=== PATIENT | female | born 1990 | race African-American/Black ===

== ENCOUNTER 2019-01-11 05:43 | Emergency (ER) | payer MEDICAID, SELFPAY ==
[2019-01-11 05:44] VITALS: BP 141/99; PULSE 107; RESP 20; TEMP 37.2; O2SAT 96; BMI 39.3
[2019-01-11 05:50] VITALS: O2SAT 97
[2019-01-11 06:34] VITALS: PULSE 91; RESP 16
[2019-01-11] MEDS: Ipratropium/Albuterol Sulfate 3 ML AMPUL.NEB INHALATION (06:34)
--- NOTE | 2019-01-11 06:55 | ED.VISSUMM ---
- ER Visit Summary Date of Service: 01/11/19 Chief Complaint: Asthma and shortness of breath History of Present Illness: The patient is a 29 F who presents with shortness of breath and asthma that began today. Patient states she woke up with this. Patient states it improved after she got an aerosol by EMS. Patient admits to a cough with some yellow sputum. Patient denies any fevers or chills. Patient denies any rhinorrhea or sore throat. Patient denies any chest pain. Patient denies any urinary complaints. Physical Examination: Vital signs are stable. Patient is afebrile. Patient is in no acute distress. Oral mucosa is pink and moist. Neck is supple. Trachea is midline. There is no JVD noted. Heart was regular rate and rhythm. Lungs were somewhat diminished bilaterally. There is adequate respiratory effort noted. Abdomen is soft and nontender. Cranial nerves II through XII are intact. There are no focal motor or sensory deficits noted. Emergency Department Course and Treatment: Patient was given a DuoNeb aerosol here. Patient felt better on reevaluation. Patient was given a prescription for albuterol inhaler. Patient was instructed to follow-up with her primary care physician in 5 to 7 days. Patient understood and was agreeable with the plan. All questions were answered. Disposition: Discharge home Impression: Asthma exacerbation This note was generated with [employer] dictation software. It may contain incorrect words, spelling, and punctuation that were not noted in review of the chart prior to signing ED Disposition - Plan for ED Patient: Disposition: Home or Assisted Living Diagnosis: Asthma exacerbation Instructions: ASTHMA, Acute (Adult) Prescriptions: Albuterol Inhaler [Ventolin Hfa] 1 - 2 puff INHALATION Q4H PRN PRN #1 inhaler PRN Reason: Wheezing Prescription Printed Referrals: Care Physician,No Primary [Primary Care Provider] - Jorge Mckeon MD [NON-STAFF] - 5-7 Days
[2019-01-11 07:16] VITALS: BP 138/92; PULSE 93; RESP 18; O2SAT 96
== END 2019-01-11 07:16 | disposition home or self-care (01) ==
PROVIDERS: Emergency Provider Emergency Medicine
DX: J45.901 Unspecified asthma with (acute) exacerbation (principal); Z87.891 Personal history of nicotine dependence
CPT/HCPCS: 94640; 99284

== ENCOUNTER 2019-01-11 13:11 | Emergency (ER) | payer MEDICAID, SELFPAY ==
[2019-01-11 05:44] VITALS: BMI 39.3
[2019-01-11 13:12] VITALS: BP 156/104; PULSE 109; RESP 22; TEMP 36.8; O2SAT 96; BMI 39.1
[2019-01-11 13:21] VITALS: O2SAT 96
--- NOTE | 2019-01-11 13:24 | ED.VIS.DYS ---
History of Present Illness Informant: Patient Onset: Yesterday Activity at onset: Exertion, Light Activity, Rest Timing: Continuous Quality: Dyspnea on exertion, Wheezing. Negative for: Orthopnea, PND Current Severity: Moderate Maximum Severity: Severe Worsened by: Coughing, Exertion. Not Worsened By: Lying flat, Nothing Relieved by: Nothing Associated Symptoms: Cough. Negative for: Bloody Sputum, Chills, Clear sputum, Ear pain, Fever, Green sputum, Post-nasal drainage, Rhinorrhea, Sore throat, Sweats, White sputum, Yellow sputum Chest Pain: None Narrative: 29-year-old female history of asthma presents to the emergency department with productive cough, shortness of breath and wheezing for the past 1 day. She was seen here earlier this morning. She was given aerosols and discharge. She used 1 puff of her metered-dose inhaler at home without improvement and has returned to the emergency department. No chest pain or fever. No hemoptysis. No recent travel or surgery. No history of DVT or PE. She is not on any oral control. Quit smoking a few days ago. Denies any other review of systems. PE Risk Factors: Negative for: Cancer, OCP + Smoking + > 35, Prior DVT or PE, Recent immobilization, Recent surgery, Recent travel Prior similar symptoms: Yes Recent Illness/Hospitalization: No <Dar Hurtado - Last Filed: 01/11/19 14:20> <Pratibha Crow - Last Filed: 01/11/19 15:01> Chief Complaint: Asthma Past Medical History Prior records reviewed: Yes Past Medical History: - - asthma Surgical History: no surgical history Lives: With Family Smoking Status: Former smoker <Dar Hurtado - Last Filed: 01/11/19 14:20> <Pratibha Crow - Last Filed: 01/11/19 15:01> - Allergies and Home Meds Allergies/Adverse Reactions: Allergies No Known Allergies Allergy (Verified 01/11/19 13:12) Primary Care Physician: Jorge Mckeon MD [NON-STAFF] - Care Physician,No Primary [Primary Care Provider] - Review of Systems All systems negative except as indicated General: Denies: Chills, Fever Respiratory: Reports: Dyspnea, Cough, Dyspnea on exertion. Denies: Sputum, Orthopnea, Paroxysmal nocturnal dyspnea <Dar Hurtado - Last Filed: 01/11/19 14:20> Physical Exam Vital Signs/Narrative: Vital Signs Temp Pulse Resp BP Pulse Ox 01/11/19 13:12 98.3 F 109 H 22 H 156/104 H 96 Inital Vital Signs reviewed: Yes General: Well nourished, Well developed, No Acute Distress Head: Normocephalic, Atraumatic Eyes: Perrl, EOMI ENT: Moist mucous membranes Neck: Supple, Nontender Cardiovascular: Regular rhythm, No murmurs, Tachycardia Respiratory: No distress, Chest nontender, Wheezing, Decreased Air Movement Abdomen: Soft, Nontender, Nondistended, Normal bowel sounds, No masses Back: Nontender, Normal Inspection Extremities: Nontender, No edema Skin: Normal color, No rash Neurological: Alert, Oriented x3 Psychological: Normal affect <Dar Hurtado - Last Filed: 01/11/19 14:20> Vital Signs/Narrative: Vital Signs Temp Pulse Resp BP Pulse Ox 01/11/19 14:55 97 18 134/79 H 96 01/11/19 13:29 106 H 18 01/11/19 13:12 98.3 F 109 H 22 H 156/104 H 96 <Pratibha Crow - Last Filed: 01/11/19 15:01> Diagnostic/Tx/Re-eval Chest X-Ray - ED: 2 View, Read by ED Physician, Read by Radiologist, No Acute Disease Treatment - Dyspnea: Albuterol, Atrovent Repeat Evaluation: Improved With Ambulation: Asymptomatic - Medical Decision Making Patient was given a round of aerosols as well as oral prednisone. Chest x-ray was unremarkable. Repeat evaluation she feels improved. Her pulse ox is normal. Her heart rate is actually improved. She has not used an inhaler since she was here last. She was given a metered-dose inhaler to take home and I will also give her a refill for her nebulizer machine. Encouraged to follow-up with her family physician next week <Dar Hurtado - Last Filed: 01/11/19 14:20> - Medical Decision Making 29-year-old female presents with asthma exacerbation. She was seen in the ED earlier today for similar complaints. She was unable to get her prescription for albuterol MDI filled. She states she was just unable to get to the pharmacy. Her insurance does cover her medications. After breathing treatments patient is feeling much improved. She is given prescription for prednisone. She was given albuterol MDI in the ED. Advised to follow up with her primary care physician. Advised return to ED for worsening complaints. <Pratibha Crow - Last Filed: 01/11/19 15:01> ED Disposition <Dar Hurtado - Last Filed: 01/11/19 14:20> <Pratibha Crow - Last Filed: 01/11/19 15:01> - Plan for ED Patient: Disposition: Home or Assisted Living Diagnosis: Asthma exacerbation Instructions: ASTHMA, Acute (Adult) Prescriptions: Prednisone [Deltasone] 40 mg PO DAILY #10 tab Prescription Printed Albuterol Aerosols [Ventolin Aerosols] 2.5 mg INHALATION Q4H PRN #25 vial Prescription Printed Referrals: Care Physician,No Primary [Primary Care Provider] - Jorge Mckeon MD [NON-STAFF] -
[2019-01-11] MEDS: predniSONE 20 MG Tablet 60 MG PO (13:28)
[2019-01-11 13:29] VITALS: PULSE 106; RESP 18
[2019-01-11] MEDS: Ipratropium/Albuterol Sulfate 3 ML AMPUL.NEB INHALATION (13:29)
[2019-01-11] MEDS: Albuterol 2.5 MG/3 ML VIAL.NEB. INHALATION ×2 (13:45)
--- NOTE | 2019-01-11 14:00 | RAD_ITS ---
STUDY: X-RAY CHEST REASON FOR EXAM: Female, 29 years old. Dyspnea TECHNIQUE: PA and lateral chest COMPARISON: None. FINDINGS: The lungs are clear, symmetrically and normally inflated. Normal cardiomediastinal silhouette, jemma and pleural margins. No acute osseous or upper abdominal abnormality. RAD/Chest PA and Lateral IMPRESSION: No acute cardiopulmonary process. Electronically Signed: Giuseppe Tomas MD at 14:15 EDT Tel , Service support ,
[2019-01-11 14:55] VITALS: BP 134/79; PULSE 97; RESP 18; O2SAT 96
== END 2019-01-11 14:58 | disposition home or self-care (01) ==
PROVIDERS: Emergency Provider Physician Assistant Medical
DX: J45.901 Unspecified asthma with (acute) exacerbation (principal); Z87.891 Personal history of nicotine dependence
CPT/HCPCS: 71046; 94640; 99283; 99284

== ENCOUNTER 2019-01-20 16:42 | Observation (INO) | payer MEDICAID, SELFPAY ==
[2019-01-20] VITALS (12 sets, daily range): BP systolic 105–143; BP diastolic 60–108; PULSE 101–132; RESP 13–32; TEMP 36.4–37.1; O2SAT 96–99; BMI 38.8
--- NOTE | 2019-01-20 19:22 | ED.RN ---
PT REFUSES TO LEAVE THE DUONEB MASK ON SAYS ITS TO HARD TO BREATH, O2 SAT 81 ON ROOM AIR IRIS INSPIRATORY AND EXPIRATORY WHEEZES. DR. SINGH MADE AWARE. EDUCATED THE PT THAT THE MEDICINE IN THE NEBULIZER IS THE FIRST STEP TO TREATING AN ASTHMA ATTACK AND THAT IT WAS IN HER BEST INTEREST TO TRY TO KEEP THE MASK ON. PT THEN ALLOWED ME TO PLACE THIS NURSE TO PLACE THE MASK BACK ON. O2 SAT IS 98% WITH THE DUONEB MASK IN PLACE.
[2019-01-20] MEDS: MethylPREDNISolone 125 MG/2 ML Vial 60 MG IV (19:40)
[2019-01-20 19:49] LABS: Absolute Lymphocyte Count 2.06 X10^3/uL (0.83-4.51); Basophil# 0.07 X10^3/uL; Basophil% 0.4 % (0-1); Eosinophil# 0.56 X10^3/uL; Eosinophils% 3.5 % (0-5); Hematocrit 46.6 % (37-47); Lymphocyte # 2.06 X10^3/ul (4.0); Lymphocyte % 12.9 % (19-41); Mean Corp Hgb Conc 32.2 g/dL (32-36); Mean Corpuscular Hgb 29.6 pg (27.0-32.0); Mean Corpuscular Volume 91.9 fL (81-99); Mean Platelet Vol. 10.2 fl (6.2-12.0); Monocyte# 1.24 X10^3/uL; Monocyte% 7.8 % (0-10); NRBC Flagged by Analyzer 0 % (0-5); Platelet Count 320 K/mm3 (150-450); RBC Distribution Width CV 12.6 % (11.6-14.6); RBC Distribution Width SD 42.7 fl (35.1-43.9); Red Blood Count 5.07 M/mm3 (4.2-5.4)
--- NOTE | 2019-01-20 20:05 | RAD_ITS ---
STUDY: X-RAY CHEST REASON FOR EXAM: Female, 29 years old. Short of breath. History of asthma. TECHNIQUE: 2 view chest. COMPARISON: 01/11/2019 chest radiographs. FINDINGS: No apparent pneumothorax, pneumonia, pleural effusion, or edema. Mild hyperinflation of both lungs. Cardiac silhouette, jemma and mediastinal contours are within normal limits. No acute osseous abnormality. No evidence of free air under the diaphragm. RAD/Chest PA and Lateral IMPRESSION: Mild hyperinflation of both lungs compatible with asthma. Electronically Signed: Kaushal Luna, at 20:24 EDT Tel , Service support ,
[2019-01-20 20:06] LABS: Anion Gap 6 (5-15); BUN 5 mg/dL (7-18); BUN/Creat Ratio 7.4 RATIO (10-20); Calcium,Total 9.3 mg/dL (8.5-10.1); Chloride 103 mmol/L (98-107); Creatinine, Serum 0.68 mg/dL (0.55-1.02); EST Glomerular Filtration Rate 111 mL/min (>60); Est Glom Filt Rate - Afr Amer 134 mL/min (>60); Estimated Creatinine Clearance 98.29 ml/min; Glucose 135 mg/dL (74-106); Sodium Level 136 mmol/L (136-145)
--- NOTE | 2019-01-20 20:43 | ED.RN ---
NO OLD EKGS IN MUSE
[2019-01-20] MEDS: Albuterol 2.5 MG/3 ML VIAL.NEB. INHALATION ×3 (20:44)
[2019-01-20] MEDS: Ipratropium/Albuterol Sulfate 3 ML AMPUL.NEB INHALATION ×2 (20:44→22:45)
--- NOTE | 2019-01-20 21:37 | ED.VISSUMM ---
- ER Visit Summary Date of Service: 01/20/19 Chief Complaint: Shortness of breath History of Present Illness: The patient is a 29 F who presents with shortness of breath that became worse today. Patient states her breathing became worse suddenly today. Patient has a history of asthma. Patient states this feels similar to prior asthma attacks but much worse. Patient states she has never been admitted to the hospital for her asthma. Patient admits to a cough with some clear sputum. Patient admits to subjective fever. Patient denies any chest pain. Patient denies any sore throat. Physical Examination: Vital signs are stable except for tachycardia of 130. Patient is afebrile. Patient is in mild respiratory distress. Oral mucosa is pink and moist. Neck is supple. Trachea is midline. There is no JVD noted. Heart was regular and tachycardic. Lungs show diffuse inspiratory and expiratory wheezing. There is good respiratory effort noted. Abdomen is soft. Bowel sounds are normal. There is no tenderness. Cranial nerves II through XII are intact. There are no focal motor or sensory deficits noted. Test Results: PA and lateral chest x-ray was obtained. There is hyperinflation but no acute cardiopulmonary process. Emergency Department Course and Treatment: Patient was given a DuoNeb aerosol followed by 2 albuterol aerosols. Patient was given Solu-Medrol IV here. Patient had some improvement of her wheezing but still has significant wheezing on reevaluation. Case was discussed with the hospitalist. Patient will be admitted for observation. Patient and family understood and were agreeable with the plan. All questions were answered. Disposition: Admit to hospital Impression: Asthma exacerbation This note was generated with [employer] dictation software. It may contain incorrect words, spelling, and punctuation that were not noted in review of the chart prior to signing ED Disposition - Plan for ED Patient: Disposition: Acute Care Hospital [facility] Diagnosis: Asthma exacerbation
--- NOTE | 2019-01-20 21:41 | PCM.HP.STD ---
Problem List (1) Asthma exacerbation Status: Acute Qualifiers: Asthma severity: severe Asthma persistence: persistent Qualified Code(s): J45.51 - Severe persistent asthma with (acute) exacerbation History of Present Illness Date of Admission: 01/20/19 Chief Complaint: shortness of breath The patient is a 29 year old female patient with a past medical history of asthma presents the emergency room with shortness of breath. The shortness of breath began this morning and has been progressively worse since. She has been seen and sent from the emergency room about 2 weeks ago for similar complaint. In the emergency room the patient received back to back albuterol treatments along with 60 mg Solu-Medrol and continues to require nasal cannula oxygen to maintain her pulse oxygenation above 90%. The patient currently denies chest pain, nausea, vomiting or diarrhea and she will be admitted to general medical floor for observation of asthma exacerbation. Past Medical History Allergies No Known Allergies Allergy (Verified 01/20/19 16:45) Home Medications: Ambulatory Orders Medication Instructions Recorded Albuterol Aerosols [Ventolin 2.5 mg INHALATION Q4H PRN #25 vial 01/11/19 Aerosols] Albuterol Inhaler [Ventolin Hfa] 1 - 2 puff INHALATION Q4H PRN PRN 01/11/19 #1 inhaler Surgical History: no surgical history Smoking Status: Former smoker - *Family History Maternal History Items: No pertinent history Review of Systems Constitutional: Denies: Chills, Fever, Weight Change HEENT: Denies: Head Aches, Sinus Congestion, Sinus Drainage Cardiovascular: Denies: Chest Pain, Palpitations Respiratory: Reports: Shortness of breath at rest, Shortness of breath upon exertion, Wheezing. Denies: Cough, Sputum production Gastrointestinal: Denies: Abdominal Pain, Nausea, Vomiting Genitourinary: Denies: Dysuria Musculoskeletal: Denies: Joint Pain, Joint Tenderness Skin: Denies: Rash, Wounds Neurological: Denies: Numbness, Tingling, Focal weakness Psychiatric: Denies: Anxiety, Depression, Homicidal Ideations, Suicidal Ideations Hematologic/ Lymphatic: Denies: Easy Bruising, Easy Bleeding VTE Information - Inpt Only VTE Present on Admission: No VTE Mechan Device Prophylaxis: None VTE Pharm Prophylaxis ordered?: Yes Patient Problems: Active and Suspected Problems Asthma exacerbation (Acute) - Physical Exam General: Alert, Oriented x3, Cooperative HEENT: Atraumatic, Normocephalic Neck: Supple Lungs: Short of Breath, Tachypneic, Wheezes Cardiovascular: Normal S1, Normal S2, No murmurs, Tachycardic Abdomen: Bowel Sounds Present, Soft, Non Tender, Obese Extremities: No edema Skin: No rashes Musculoskeletal: No Tenderness to Palpation of Joints or Extremities Neurological: Neuro grossly intact Psych/Mental Status: Normal Affect, Appropriate Vital Signs Temp Pulse Resp BP Pulse Ox 97.5 F L 117 H 13 129/80 H 98 01/20/19 16:43 01/20/19 21:19 01/20/19 21:19 01/20/19 21:19 01/20/19 21:19 Oxygen Flow Rate (L/min) 2 Oxygen Delivery Method Nasal Cannula Weight: 212 lb 8.41 oz Body Mass Index (BMI) 38.8 Laboratory Tests Past 24 Hrs 01/20/19 01/20/19 19:39 19:39 WBC 16.0 H RBC 5.07 Hgb 15.0 Hct 46.6 MCV 91.9 MCH 29.6 MCHC 32.2 RDW Std Deviation 42.7 RDW Coeff of [place] 12.6 Plt Count 320 MPV 10.2 Immature Gran % (Auto) 0.400 Neut % (Auto) 75.0 H Lymph % (Auto) 12.9 L [place] % (Auto) 7.8 Eos % (Auto) 3.5 Baso % (Auto) 0.4 Absolute Neuts (auto) 12.0 H Absolute Lymphs (auto) 2.06 Nucleated RBC % 0 Sodium 136 Potassium 4.0 Chloride 103 Carbon Dioxide 27.0 Anion Gap 6 BUN 5 L Creatinine 0.68 Estim Creat Clear Calc 98.29 Est GFR (MDRD) Af Amer 134 Est GFR (MDRD) Non-Af 111 BUN/Creatinine Ratio 7.4 L Glucose 135 H Calcium 9.3 Assessment/Plan All Active Problems Asthma exacerbation (Acute) Plan 1. admit for observation to general medical floor for asthma exacerbation. Continue DuoNeb breathing treatments every 4 hours as needed, 40 mg Solu-Medrol IV every 6, oxygen per protocol. Would recommend attempt to wean off oxygen as tolerated. Perhaps plan for discharge tomorrow afternoon with steroid taper 15 days are better. The patient does not have local primary care and will benefit from having chronic preventive management of asthma. 2. DVT prophylaxis?low molecular weight heparin Code Visit OBSV E&M: 31517 Initial observation care L2
[2019-01-20] MEDS: 0.9% NaCl Peripheral Flush Adult/Peds IV (23:37)
[2019-01-20] MEDS: Acetaminophen 325 MG Tablet 650 MG PO (23:37)
[2019-01-21] VITALS (12 sets, daily range): BP systolic 114–122; BP diastolic 66–67; PULSE 82–105; RESP 18–22; TEMP 36.6–37.1; O2SAT 94–98
[2019-01-21] MEDS: 0.9% NaCl Peripheral Flush Adult/Peds IV ×3 (05:03→20:44)
[2019-01-21 06:15] LABS: Absolute Lymphocyte Count 0.47 X10^3/uL (0.83-4.51); Hematocrit 43.9 % (37-47); Hemoglobin 14.5 g/dL (12.0-15.0); Lymphocyte # 0.47 X10^3/ul (4.0); Lymphocyte % 7.1 % (19-41); Mean Corpuscular Hgb 29.8 pg (27.0-32.0); Mean Corpuscular Volume 90.3 fL (81-99); Mean Platelet Vol. 10.4 fl (6.2-12.0); Monocyte# 0.11 X10^3/uL; Monocyte% 1.7 % (0-10); NRBC Flagged by Analyzer 0 % (0-5); Neutrophil # 5.98 X10^3/uL (2.7-7.7); Neutrophil % 90.6 % (47-70); POSITIVE DIFFERENTIAL YES; Platelet Count 244 K/mm3 (150-450); RBC Distribution Width CV 12.6 % (11.6-14.6); Red Blood Count 4.86 M/mm3 (4.2-5.4); White Blood Count 6.6 K/mm3 (4.4-11.0)
[2019-01-21 06:22] LABS: Differential Indicated SCAN CRITERIA MET
[2019-01-21 06:36] LABS: Anion Gap 8 (5-15); BUN 6 mg/dL (7-18); BUN/Creat Ratio 9.3 RATIO (10-20); Calcium,Total 9.4 mg/dL (8.5-10.1); Chloride 104 mmol/L (98-107); Creatinine, Serum 0.64 mg/dL (0.55-1.02); EST Glomerular Filtration Rate 117 mL/min (>60); Est Glom Filt Rate - Afr Amer 142 mL/min (>60); Estimated Creatinine Clearance 104.43 ml/min; Glucose 139 mg/dL (74-106); Potassium 3.8 mmol/L (3.5-5.1); Sodium Level 138 mmol/L (136-145)
--- NOTE | 2019-01-21 06:38 | PN_ITS ---
Patient Problems: Active and Suspected Problems Asthma exacerbation (Acute) Subjective: The patient is a 29-year-old female with a past medical history of asthma on a as needed Ventolin inhaler only who presented to the emergency department at [facility] on 01/20/2019 complaining of shortness of breath. Vital signs at presentation to the emergency department were temperature 97.5, also rate 130, blood pressure 143/108, respiratory rate 18-32 and pulse ox of 96% on room air. Later was placed on a venti mask at 12L and pulse ox was 98%. Labs showed a white blood cell count of 16 with a normal hemoglobin and normal platelets. BMP was unremarkable. Random blood sugar was 135. Chest x-ray showed mild hyperinflation with no infiltrates, pleural effusions or pulmonary vascular congestion. She was given aerosolized bronchodilators in the emergency department and 60 mg of IV Solu-Medrol but reportedly could not maintain a pulse ox greater than 90% on room air. She was admitted to the hospital for observation. IV Solu-Medrol and scheduled aerosolized bronchodilators were initiated. All events the past 24 hours of been reviewed. Afebrile since admission Vital signs are stable. She is currently 95% on room air with a respiratory rate of 22. All imaging, lab and microbiology were reviewed. White blood cell count is normal at 6.6 today. BMP remains unremarkable with the exception of a fasting blood sugar of 130, possibly due to high-dose intravenous steroids. She has albuterol aerosol solution and an albuterol metered-dose inhaler at home which she uses very frequently. She has been on prednisone twice this month alone for asthma exacerbations. She is on no inhaled steroids chronically. She has never had pulmonary function tests. she recently moved to [place] to live with her father. She admits to having seasonal allergies. - Physical Exam General: Alert, Oriented x3, Cooperative HEENT: PERRLA, EOMI, Normocephalic, - - No pharyngeal injection or exudate Oral: Moist Mucosa Neck: Supple, No Nodes, Trachea Midline Lungs: Rales - in the bases BL coarse....did not completely clear after a deep breath, Wheezes Cardiovascular: Regular Rhythm, Normal S1, Normal S2, No murmurs, No rub noted, No Gallop, Tachycardic Abdomen: Bowel Sounds Present, Soft, Non Tender, Non-Distended, Obese Extremities: No clubbing, No cyanosis, No edema, No Calf Tenderness Skin: No rashes Musculoskeletal: No Muscle Wasting Neurological: Cranial nerves II-XII grossly intact, Neuro grossly intact Psych/Mental Status: Normal Affect, Appropriate Vital Signs Temp Pulse Resp BP Pulse Ox 98.2 F 98 22 H 115/67 95 01/21/19 04:59 01/21/19 04:59 01/21/19 04:59 01/21/19 04:59 01/21/19 04:59 Oxygen Flow Rate (L/min) 2 Oxygen Delivery Method Room Air Weight: 212 lb 4.882 oz Body Mass Index (BMI) 38.8 Intake and Output for Last 24 Hours 01/19/19 01/20/19 01/21/19 23:59 23:59 23:59 Intake Total 50 / 50 Balance 50 / 50 Laboratory Tests Past 24 Hrs 01/20/19 01/20/19 01/21/19 19:39 19:39 05:52 WBC 16.0 H RBC 5.07 Hgb 15.0 Hct 46.6 MCV 91.9 MCH 29.6 MCHC 32.2 RDW Std Deviation 42.7 RDW Coeff of [place] 12.6 Plt Count 320 MPV 10.2 Immature Gran % (Auto) 0.400 Neut % (Auto) 75.0 H Lymph % (Auto) 12.9 L [place] % (Auto) 7.8 Eos % (Auto) 3.5 Baso % (Auto) 0.4 Absolute Neuts (auto) 12.0 H Absolute Lymphs (auto) 2.06 Nucleated RBC % 0 Sodium 136 138 Potassium 4.0 3.8 Chloride 103 104 Carbon Dioxide 27.0 26.0 Anion Gap 6 8 BUN 5 L 6 L Creatinine 0.68 0.64 Estim Creat Clear Calc 98.29 104.43 Est GFR (MDRD) Af Amer 134 142 Est GFR (MDRD) Non-Af 111 117 BUN/Creatinine Ratio 7.4 L 9.3 L Glucose 135 H 139 H Calcium 9.3 9.4 01/21/19 05:52 WBC 6.6 RBC 4.86 Hgb 14.5 Hct 43.9 MCV 90.3 MCH 29.8 MCHC 33.0 RDW Std Deviation 42.0 RDW Coeff of [place] 12.6 Plt Count 244 MPV 10.4 Immature Gran % (Auto) 0.600 Neut % (Auto) 90.6 H Lymph % (Auto) 7.1 L [place] % (Auto) 1.7 Eos % (Auto) 0.0 Baso % (Auto) 0.0 Absolute Neuts (auto) 6.0 Absolute Lymphs (auto) 0.47 L Nucleated RBC % 0 Sodium Potassium Chloride Carbon Dioxide Anion Gap BUN Creatinine Estim Creat Clear Calc Est GFR (MDRD) Af Amer Est GFR (MDRD) Non-Af BUN/Creatinine Ratio Glucose Calcium Medical Necessity - Tobacco Use Smoking Status: Former smoker Assessment/Plan All Active Problems Asthma exacerbation (Acute) Impressions 1. Acute exacerbation of asthma - this is her second time on steroids this month alone. No on appropriate management for asthma. Using her rescue inhaler multiple times a week. Hyperinflation on chest x-ray. Has no PCP and has never seen a business continuity planner or had PFT's. Continue high-dose intravenous steroids, [id number] aerosolized bronchodilators. Add mucinex and PRN albuterol aerosols. Will need a better regimen for control of asthma at [place] . Will have her follow up in the pulmonary clinic. 2. obesity - weight loss advised 3. Former smoker Code Visit OBSV E&M: 59729 Subsequent observation care L2
[2019-01-21 07:06] LABS: Cholesterol 167 mg/dL (200); High Density Lipoprotein 70 mg/dL; Triglycerides 35 mg/dL; Very Low Density Lipoprotein 7 mg/dL (5-40)
[2019-01-21] MEDS: Ipratropium/Albuterol Sulfate 3 ML AMPUL.NEB INHALATION ×5 (07:11→22:57)
[2019-01-21 07:59] LABS: Hemoglobin A1c 5.4 % (4.2-6.3)
[2019-01-21] MEDS: Acetaminophen 325 MG Tablet 650 MG PO (09:00)
[2019-01-21] MEDS: Enoxaparin 40 MG/0.4 ML Syringe SC (09:01)
[2019-01-21] MEDS: Ketorolac 15 MG/ML Vial IV ×2 (15:01→20:53)
[2019-01-21] MEDS: guaiFENesin 1,200 MG Tablet 1200 MG PO (20:42)
[2019-01-22] VITALS (7 sets, daily range): BP systolic 112–134; BP diastolic 78–85; PULSE 9–90; RESP 16–20; TEMP 36.8–37.1; O2SAT 95–98
[2019-01-22] MEDS: Ipratropium/Albuterol Sulfate 3 ML AMPUL.NEB INHALATION ×3 (03:19→13:00)
[2019-01-22] MEDS: 0.9% NaCl Peripheral Flush Adult/Peds IV (05:25)
[2019-01-22] MEDS: predniSONE 20 MG Tablet 40 MG PO (08:06)
[2019-01-22] MEDS: guaiFENesin 1,200 MG Tablet 1200 MG PO (08:06)
--- NOTE | 2019-01-22 08:48 | PCM.CONS.PUL ---
Reason for Consult Date of Consultation: 01/22/19 Reason for Consultation: Asthma exacerbation History of Present Illness: The patient is a 29-year-old female, with a history as outlined below, who presented to the emergency department on January 20 with complaints of worsening shortness of breath, chest tightness, wheezing and cough. The patient endorses a history of asthma, which she reports was initially diagnosed in childhood. She states that her asthma has never been under good control. The patient recently relocated from [place] to the local area. However, she has never previously been evaluated by a mannequin refinisher, nor has she ever undergone pulmonary function testing. The patient's asthma has been managed previously by her primary care provider. She was previously only prescribed an albuterol rescue inhaler. The patient does have a relatively limited smoking history of 0.25 packs/day, having reportedly quit 2 to 3 months ago. She denies a history of vaping or marijuana use. She does report a history of seasonal allergic rhinitis, with symptoms that tend to be worse in the spring months. She does not currently keep any pets in her home environment. At her baseline, the patient reports that she utilizes her rescue inhaler on average 1 time per day. The patient denies any recent sick contact exposure. On presentation to the emergency department, the patient was noted to be afebrile and tachycardic, but was hemodynamically stable. Initial laboratory evaluation revealed an elevated white blood cell count to 16,000. Chemistry profile was largely unremarkable. Plain film chest x-ray revealed no acute cardiopulmonary process. The patient was treated with aerosolized bronchodilators and IV steroids. She was noted to have significant wheezing on examination and was subsequently admitted to the hospital for further management. Overnight, the patient has been maintained on scheduled bronchodilators and prednisone. She is currently maintaining appropriate oxygen saturations on room air. Past Medical History Past Medical History (Chronic Problems): Chronic Problems Obesity (BMI 35.0-39.9 without comorbidity) (Chronic) Former smoker (Chronic) Allergies shellfish derived Allergy (Verified 01/20/19 22:29) Shortness of breath Home Medications: Ambulatory Orders Medication Instructions Recorded Albuterol Inhaler [Ventolin Hfa] 1 - 2 puff INHALATION Q4H PRN PRN 01/11/19 #1 inhaler Albuterol Aerosols [Ventolin 2.5 mg INHALATION Q4H #120 01/22/19 Aerosols] vial.neb. Guaifenesin [Mucinex] 1,200 mg PO BID #20 tab 01/22/19 Prednisone 10 mg PO UD #30 tab 01/22/19 Surgical History: no surgical history Smoking Status: Former smoker - *Family History Maternal History Items: No pertinent history Review of Systems Constitutional: Denies: Chills, Fever Eyes: Denies: Blurred vision, Double vision HEENT: Denies: Head Aches, Sinus Congestion, Sinus Drainage Cardiovascular: Reports: Chest Tightness. Denies: Chest Pain, Heaviness Respiratory: Reports: Cough, Shortness of Breath, Wheezing Gastrointestinal: Denies: Abdominal Pain, Nausea, Vomiting Genitourinary: Denies: Dysuria Musculoskeletal: Denies: Joint Pain, Joint Tenderness Skin: Denies: Rash, Wounds Neurological: Denies: Numbness, Tingling, Focal weakness Psychiatric: Denies: Anxiety, Depression, Homicidal Ideations, Suicidal Ideations Hematologic/ Lymphatic: Denies: Easy Bruising, Easy Bleeding Objective: The patient's most recent lab work, culture data and imaging studies have all been personally reviewed. - Physical Exam General: Alert, Oriented x3, Cooperative, No apparent distress HEENT: Atraumatic, PERRLA, Normocephalic Oral: No Gingival or Mucosal Lesions/ Ulcerations Neck: Supple, No Nodes, Trachea Midline Lungs: - - Relatively preserved air movement with bilateral expiratory wheezing. No accessory muscle use. No conversational dyspnea. Cardiovascular: Regular rate, Regular Rhythm, Normal S1, Normal S2, No murmurs Abdomen: Bowel Sounds Present, Soft, Non Tender, Obese Extremities: No clubbing, No cyanosis, No edema Skin: No rashes, No breakdown Musculoskeletal: No Tenderness to Palpation of Joints or Extremities, No Muscle Wasting Lymphatic: No Cervical, Supraclavicular, or Inguinal Adenopathy Neurological: Cranial nerves II-XII grossly intact, Neuro grossly intact Psych/Mental Status: Alert and oriented to time, place, person, mood and affect Vital Signs Temp Pulse Resp BP Pulse Ox 98.5 F 84 18 126/85 H 95 01/22/19 07:55 01/22/19 08:17 01/22/19 08:17 01/22/19 07:55 01/22/19 08:08 Oxygen Flow Rate (L/min) 2 Oxygen Delivery Method Room Air Weight: 212 lb 4.882 oz Body Mass Index (BMI) 38.8 Intake and Output for Last 24 Hours 01/20/19 01/21/19 01/22/19 23:59 23:59 23:59 Intake Total 890 / 890 350 / 350 Balance 890 / 890 350 / 350 Labs (Last 48 Hours) 01/20/19 01/20/19 01/21/19 19:39 19:39 05:52 WBC 16.0 H RBC 5.07 Hgb 15.0 Hct 46.6 MCV 91.9 MCH 29.6 MCHC 32.2 RDW Std Deviation 42.7 RDW Coeff of Belen 12.6 Plt Count 320 MPV 10.2 Immature Gran % (Auto) 0.400 Neut % (Auto) 75.0 H Lymph % (Auto) 12.9 L Bonner % (Auto) 7.8 Eos % (Auto) 3.5 Baso % (Auto) 0.4 Absolute Neuts (auto) 12.0 H Absolute Lymphs (auto) 2.06 Nucleated RBC % 0 Sodium 136 138 Potassium 4.0 3.8 Chloride 103 104 Carbon Dioxide 27.0 26.0 Anion Gap 6 8 BUN 5 L 6 L Creatinine 0.68 0.64 Estim Creat Clear Calc 98.29 104.43 Est GFR (MDRD) Af Amer 134 142 Est GFR (MDRD) Non-Af 111 117 BUN/Creatinine Ratio 7.4 L 9.3 L Glucose 135 H 139 H Hemoglobin A1c Calcium 9.3 9.4 Triglycerides Cholesterol LDL Cholesterol VLDL Cholesterol HDL Cholesterol 01/21/19 01/21/19 01/21/19 05:52 05:52 05:52 WBC 6.6 RBC 4.86 Hgb 14.5 Hct 43.9 MCV 90.3 MCH 29.8 MCHC 33.0 RDW Std Deviation 42.0 RDW Coeff of Belen 12.6 Plt Count 244 MPV 10.4 Immature Gran % (Auto) 0.600 Neut % (Auto) 90.6 H Lymph % (Auto) 7.1 L Bonner % (Auto) 1.7 Eos % (Auto) 0.0 Baso % (Auto) 0.0 Absolute Neuts (auto) 6.0 Absolute Lymphs (auto) 0.47 L Nucleated RBC % 0 Sodium Potassium Chloride Carbon Dioxide Anion Gap BUN Creatinine Estim Creat Clear Calc Est GFR (MDRD) Af Amer Est GFR (MDRD) Non-Af BUN/Creatinine Ratio Glucose Hemoglobin A1c 5.4 Calcium Triglycerides 35 Cholesterol 167 LDL Cholesterol 90 VLDL Cholesterol 7 HDL Cholesterol 70 Clinical Impression(s) from Imaging Studies Chest X-Ray 01/20/19 20:05 IMPRESSION: Mild hyperinflation of both lungs compatible with asthma. Electronically Signed: Kaushal Luna, at 20:24 EDT Tel , Service support , Assessment/Plan All Active Problems Asthma exacerbation (Acute) RECOMMENDATIONS: 1. Check respiratory viral panel. 2. Continue bronchodilators and steroids. 3. Encourage incentive spirometer use while in bed. 4. Perform walking oximetry study prior to consideration for discharge from the hospital. 5. Recommend that the patient be started on a maintenance inhaler regimen at discharge. Samples will be provided to the patient. 6. The patient has been scheduled to follow up in the pulmonary medicine clinic on February 06 @ 11:15 AM. IMPRESSIONS: 1. Baseline asthma with exacerbation The patient does appear to have suboptimally treated asthma, which may have been exacerbated by a viral etiology. The patient does not have a focal infiltrate on chest x-ray. While the patient is failed outpatient treatment for asthma, she does appear to be responding to scheduled bronchodilators and steroids currently. I would recommend checking a respiratory viral panel for the sake of completeness. I would recommend that at the time of discharge should be started on a combination LABA/ICS until she follows up in the pulmonary medicine clinic. The patient was provided with samples of Breo Ellipta today and instructed on use. 2. History of tobacco dependency currently in remission Ongoing tobacco cessation strongly recommended. This note was generated with [employer] software. It may contain incorrect words, spelling, and punctuation that were not noted in checking the note before signing. Code Visit Inpatient E&M: 39918 Init Hosp L3
[2019-01-22] MEDS: Enoxaparin 40 MG/0.4 ML Syringe SC (10:25)
--- NOTE | 2019-01-22 13:32 | DCINST_ITS ---
- Discharge Diagnoses Current Active Problems: Current Active and Chronic Problems Asthma exacerbation (Acute) You will use the following diet at home:: No restrictions Your food should be the consistency of: Regular Your liquids should be the consistency of: Regular/Thin Discharge Activity: - - Avoid exposure to any strong smells such as bleach, cleaning products, strong colognes or perfumes, paint fumes and smoke of any kind. Avoid sudden exposure to cold air because this can cause bronchospasm. You may want to cover your mouth when you go outside in the winter. Avoid exposure to anyone who is sick with a cough or sore throat. Call your doctor if you observe: Fever of 101 or Higher, Shortness of breath, Dizziness, Fainting spells, Chest pain Instructions: Understanding Asthma, Understanding Asthma Triggers, Caring for Your Inhaler Additional Instructions: Steroids like prednisone can sometimes cause a vaginal yeast infection. You will have itching in the vaginal area and possibly a thick white DC. If this happens you can call you PCP or you can purchase Monistat or Gyne-Lotrimin over the counter at the pharmacy to treat this. Everyone needs a primary care doctor. This doctor will take care of the routing testing that you should have, including PAP smears, vaccinations etc AND when you are sick instead of coming to the ER you can call your PCP and be seen and treated, often the same day. The respiratory panel ordered by Dr. Fernandez to check for viruses that may have caused the exacerbation of the asthma is still pending at the time of your discharge. You can call me later today at [phone] and I will let you know the results. Take care of yourself and that beautiful baby boy. Pending Tests on Discharge: respiratory panel Allergies/Adverse Reactions: Allergies shellfish derived Allergy (Verified 01/20/19 22:29) Shortness of breath Medications to take at Discharge Albuterol Inhaler [Ventolin Hfa] 1 - 2 puff INHALATION Q4H PRN PRN #1 inhaler 01/11/19 Albuterol Aerosols [Ventolin Aerosols] 2.5 mg INHALATION Q4H #120 vial.neb. 01/22/19 Guaifenesin [Mucinex] 1,200 mg PO BID #20 tab 01/22/19 Prednisone 10 mg PO UD #30 tab 01/22/19 The following prescriptions were given: Guaifenesin [Mucinex] 1,200 mg PO BID #20 tab Transmission Status: Pending to [facility] Prednisone 10 mg PO UD #30 tab Prescription Printed Albuterol Aerosols [Ventolin Aerosols] 2.5 mg INHALATION Q4H #120 vial.neb. Prescription Printed Primary Care Physician: Care Physician,No Primary [Primary Care Provider] - Test Results: Test results from this visit will be discussed in further detail at your follow- up appointment, if applicable. Please Follow Up With: Blossom Russo MD When: in the next 2-3 weeks to establish care Please Follow Up With: Domingo Fernandez DO When: She was given an appt card by Dr. Fernandez for follow up in the office. Proposed Discharge Date: 01/22/19
--- NOTE | 2019-01-22 14:12 | PCM.DC.SUM ---
Discharge Date and Diagnosis Date of Admission: 01/20/19 Date of Discharge: 01/22/19 - Primary Discharge Diagnosis Active and Suspected Problems Asthma exacerbation (Acute) - Secondary Discharge Diagnosis Chronic Problems Obesity (BMI 35.0-39.9 without comorbidity) (Chronic) Former smoker (Chronic) Hospital Course and Treatment Imaging Results: Clinical Impression(s) from Imaging Studies Chest X-Ray 01/20/19 20:05 IMPRESSION: Mild hyperinflation of both lungs compatible with asthma. Electronically Signed: Tylerrachel Cheryl, at 20:24 EDT Tel , Service support , Microbiology 01/22/19 10:20 Mucosa - Nose Respiratory Panel (PCR) - Final negative Dr. Domingo Fernandez-pulmonary medicine Operations: None Procedures: None Summary of Care Provided: The patient is a 29-year-old female with a past medical history of asthma on an as needed Ventolin inhaler only who presented to the emergency department at [facility] on 01/20/2019 complaining of shortness of breath. Vital signs at presentation to the emergency department were temperature 97.5, heart rate 130, blood pressure 143/108, respiratory rate 18-32 and pulse ox of 96% on room air. Later was placed on a venti mask at 12L and pulse ox was 98%. Labs showed a white blood cell count of 16 with a normal hemoglobin and normal platelets. BMP was unremarkable. Random blood sugar was 135. Chest x-ray showed mild hyperinflation with no infiltrates, pleural effusions or pulmonary vascular congestion. She was given aerosolized bronchodilators in the emergency department and 60 mg of IV Solu-Medrol but reportedly could not maintain a pulse ox greater than 90% on room air. This is not documented in the vital signs. She was admitted to the hospital for observation. IV Solu-Medrol and scheduled aerosolized bronchodilators were initiated. She was afebrile for the duration of her hospital stay. She was transitioned to prednisone 40 mg daily on 01/22/2019 and examined later in the afternoon. At that time she had no wheezing and no crackles. She had no conversational dyspnea, no tachypnea and no accessory muscle use. She stated she felt well enough to go home. The pulse ox on room air with ambulation was 95%. She was seen by Dr. Domingo Fernandez while in the hospital who ordered a respiratory panel that was negative. He scheduled an appointment with her in the pulmonary medicine clinic on February 06 at 11:15 PM and gave her samples of a Breo inhaler to be used as maintenance therapy. She was discharged home on a tapering dose of prednisone over the next 10 days. She was also given a prescription for a nebulizer and albuterol aerosol solution. She has no PCP in [place] and she recently moved here to live with her father. She is going to follow up with Dr. Russo for routine medical care. PHYSICAL EXAM: GENERAL: alert, oriented X 3, Cooperative, NAD ORAL: moist mucosa, no mucosal lesions NECK: No JVD, supple, trachea midline LUNGS: CTA, symmetric chest expansion, not tachypnea, no conversational dyspnea, no accessory muscle use, pulse ox 95% on room air with ambulation HEART: RRR, Normal S1 and S2, no rub, no gallop ABDOMEN: soft, NT, ND, BS present, no guarding with palpation EXTREMITIES: no edema, no cyanosis, no calf tenderness SKIN: No rashes, no breakdown NEUROLOGIC: no focal neurologic deficits PSYCH: appropriate, normal affect, pleasant This note was generated with [employer] dictation software. It may contain incorrect words, spelling, and punctuation that were not noted in checking the note before signing. - Physical Exam Vital Signs Temp Pulse Resp BP Pulse Ox 98.5 F 80 18 126/85 H 95 01/22/19 07:55 01/22/19 13:14 01/22/19 13:14 01/22/19 07:55 01/22/19 08:08 Oxygen Flow Rate (L/min) 2 Oxygen Delivery Method Room Air Weight: 212 lb 4.882 oz Body Mass Index (BMI) 38.8 Intake and Output for Last 24 Hours 01/20/19 01/21/19 01/22/19 23:59 23:59 23:59 Intake Total 890 / 890 950 / 950 Balance 890 / 890 950 / 950 Discharge Activity: - - Avoid exposure to any strong smells such as bleach, cleaning products, strong colognes or perfumes, paint fumes and smoke of any kind. Avoid sudden exposure to cold air because this can cause bronchospasm. You may want to cover your mouth when you go outside in the winter. Avoid exposure to anyone who is sick with a cough or sore throat. Call your doctor if you observe: Fever of 101 or Higher, Shortness of breath, Dizziness, Fainting spells, Chest pain Home Medications: Medications to take at Discharge Albuterol Inhaler [Ventolin Hfa] 1 - 2 puff INHALATION Q4H PRN PRN #1 inhaler 01/11/19 Albuterol Aerosols [Ventolin Aerosols] 2.5 mg INHALATION Q4H #120 vial.neb. 01/22/19 Guaifenesin [Mucinex] 1,200 mg PO BID #20 tab 01/22/19 Prednisone 10 mg PO UD #30 tab 01/22/19 Following Prescrptions Were Given to Patient: Guaifenesin [Mucinex] 1,200 mg PO BID #20 tab Transmission Status: Received by [facility] Prednisone 10 mg PO UD #30 tab Prescription Printed Albuterol Aerosols [Ventolin Aerosols] 2.5 mg INHALATION Q4H #120 vial.neb. Prescription Printed Primary Care Physician: Care Physician,No Primary [Primary Care Provider] - Please Follow Up With: Blossom Russo MD When: in the next 2-3 weeks to establish care Please Follow Up With: Domingo Fernandez DO When: She was given an appt card by Dr. Fernandez for follow up in the office. Patient Instructions: Understanding Asthma, Understanding Asthma Triggers, Caring for Your Inhaler Disposition: Home Minutes spent on discharge:: 25 Patient Condition:: Good Medical Necessity - Tobacco Use Smoking Status: Former smoker Tobacco Use: Non-smoker Meaningful Use Info Meaningful Use Diagnoses (Choose all that apply): None applicable Code Visit OBSV E&M: 22583 Observation care discharge
--- NOTE | 2019-01-22 16:08 | NURSING ---
called pt to report negative respiratory panel
== END 2019-01-22 15:20 | disposition home or self-care (01) ==
LOC: ED 21:37 → MS3 01-21 00:08
PROVIDERS: Admitting Provider Family Medicine; Emergency Provider Emergency Medicine; Referring Provider Family Medicine; Visit Provider Internal Medicine
DX: J45.51 Severe persistent asthma with (acute) exacerbation (principal); Z87.891 Personal history of nicotine dependence; E66.9 Obesity, unspecified; Z68.38 Body mass index [BMI] 38.0-38.9, adult; Z71.3 Dietary counseling and surveillance
CPT/HCPCS: 36415; 71046; 80048; 80061; 83036; 85025; 87633; 94640; 96372; 96374; 96375; 96376; 99218; 99285; A4216; G0378

== ENCOUNTER 2019-02-17 08:40 | Emergency (ER) | payer MEDICAID, SELFPAY ==
[2019-01-20 22:13] VITALS: BMI 38.8
[2019-02-17 08:40] VITALS: BP 148/77; PULSE 116; RESP 17; TEMP 36.6; O2SAT 96; BMI 38.7
--- NOTE | 2019-02-17 08:47 | ED.VIS.GEN ---
History of Present Illness Chief Complaint: Cold Sx Informant: Patient Onset: Yesterday Context: Sudden Onset Timing: Continuous Quality: Congestion, cough and shortness of breath Location: Upper respiratory Current Severity: Mild Maximum Severity: Moderate Worsened by: Activity and coughing Relieved by: Improved with DuoNeb Associated Symptoms: Upper viral respiratory symptoms Narrative: Patient is a 29-year-old female with history of asthma. She states she quit smoking September 2018. She reports last evening she developed URI symptoms which included nasal congestion, postnasal drainage, sore throat. This morning she had a cough productive of yellow-colored sputum. She denies fever or chills. She denies ringing or ears, ear pain or decreased hearing. She denies ocular or visual symptoms. She denies headache, neck pain or neck stiffness. She denies chest discomfort. She denies leg pain, swelling discoloration. She has no history of PE or DVT. She states she has been on prednisone within the last 3 months. Prior similar symptoms: Yes Recent Illness/Hospitalization: Yes - Past Medical History (1) Asthma exacerbation Status: Acute (2) Former smoker Status: Chronic (3) Obesity (BMI 35.0-39.9 without comorbidity) Status: Chronic Past Medical History - Allergies and Home Meds Allergies/Adverse Reactions: Allergies shellfish derived Allergy (Verified 02/17/19 08:43) Shortness of breath Primary Care Physician: Care Physician,No Primary [Primary Care Provider] - Prior records reviewed: Yes Surgical History: no surgical history Lives: With Family Smoking Status: Former smoker Drugs: None - Family History Maternal Family History: Reports: No pertinent history Review of Systems General: Denies: Chills, Fever, Malaise, Sweats Eyes: Denies: Visual changes - bilaterally, Blurred Vision - bilaterally ENT: Reports: Rhinorrhea, Sore throat. Denies: Left ear pain, Right ear pain Cardiovascular: Denies: Chest pain, Palpitations Respiratory: Reports: Dyspnea, Cough, Sputum, Dyspnea on exertion. Denies: Orthopnea, Paroxysmal nocturnal dyspnea Gastrointestinal: Denies: Abdominal pain, Nausea, Vomiting, Diarrhea Musculoskeletal: Denies: Myalgias, Arthralgias, Neck pain, Back pain, Swelling, Extremity Pain Skin: Denies: Rash, Wounds Neurological: Denies: Headache, Weakness, Numbness Hematologic: Denies: Easy bruising, Easy bleeding Allergy: Denies: Uticaria, Swelling of the mouth, Swelling of the tongue Physical Exam Vital Signs/Narrative: Vital Signs Temp Pulse Resp BP Pulse Ox 02/17/19 08:40 97.8 F 116 H 17 148/77 H 96 Inital Vital Signs reviewed: Yes General: Well nourished, Well developed, Acute Distress Eyes: Perrl, EOMI ENT: Moist mucous membranes, TM's clear, Nasal congestion. Negative for: Sinus tenderness Cardiovascular: Regular rhythm, No murmurs, Normal S1, Normal S2, Tachycardia Respiratory: No distress, Chest nontender, Wheezing - There is increased x-ray phase. There is decreased movement of air bilaterally as well. There is no use of accessory muscles.. Negative for: Retractions Abdomen: Soft, Nontender, Nondistended, Normal bowel sounds Extremities: Nontender, No edema Skin: Normal color, No rash, No Trauma. Negative for: Cyanosis, Diaphoresis, Jaundice Neurological: Alert, Oriented x3, Cranial nerves II-XII grossly intact, Normal Strength, Normal Sensation Psychological: Normal affect, Normal Mood Diagnostic/Tx/Re-eval - Medical Decision Making Patient with upper viral type symptoms causing exacerbation of asthma. Since patient has been on prednisone the last 3 months she received 60 mill grams of prednisone in the department. She received a DuoNeb prior to arrival. 3 albuterol aerosols were ordered. Will reassess after treatment. Differential is viral infection causing exacerbation of asthma. Based on history and physical doubt pneumonia. Patient was reassessed and 0935. She reports feeling much better. There is still residual wheezing. Since she was recently on prednisone will prescribe burst of prednisone. Patient was instructed to use inhaler more frequently over the next 2 days. ED Disposition - Plan for ED Patient: Disposition: Home or Assisted Living Diagnosis: Acute asthma exacerbation, Upper respiratory infection, viral Instructions: BRONCHITIS with Wheezing (Adult) Prescriptions: Prednisone [Deltasone] 40 mg PO DAILY #10 tab Prescription Printed Referrals: Care Physician,No Primary [Primary Care Provider] - Additional Instructions: 1. Contact care source to obtain names of physicians who are covered on your insurance. 2. Take prednisone until gone. 3. Recommend using your inhaler every 2-4 hours while awake for the next 2 days.
[2019-02-17 09:00] VITALS: PULSE 113; RESP 20; O2SAT 95
[2019-02-17] MEDS: predniSONE 20 MG Tablet 60 MG PO (09:10)
[2019-02-17] MEDS: Albuterol 2.5 MG/3 ML VIAL.NEB. INHALATION ×3 (09:14)
[2019-02-17 09:57] VITALS: BP 148/77; PULSE 115; RESP 20; O2SAT 99
--- NOTE | 2019-02-17 10:08 | ED.DCSUM_ITS ---
- ER Visit Summary Date of Service: 02/17/19 Chief Complaint: [] History of Present Illness: The patient is a 29 F [] Physical Examination: [] Test Results: [] Emergency Department Course and Treatment: [] Treatment Plan: [] Disposition: [] Impression: [] This note was generated with [employer] dictation software. It may contain incorrect words, spelling, and punctuation that were not noted in review of the chart prior to signing ED Disposition - Plan for ED Patient: Disposition: Home or Assisted Living Diagnosis: Acute asthma exacerbation, Upper respiratory infection, viral Instructions: BRONCHITIS with Wheezing (Adult) Prescriptions: Prednisone [Deltasone] 40 mg PO DAILY #10 tab Prescription Printed Albuterol Inhaler [Ventolin Hfa] 2 puff INHALATION Q4H PRN PRN #1 inhaler PRN Reason: Wheezing Prescription Printed Referrals: Care Physician,No Primary [Primary Care Provider] - Additional Instructions: 1. Contact care source to obtain names of physicians who are covered on your insurance. 2. Take prednisone until gone. 3. Recommend using your inhaler every 2-4 hours while awake for the next 2 days.
== END 2019-02-17 10:17 | disposition home or self-care (01) ==
PROVIDERS: Emergency Provider Emergency Medicine
DX: J45.901 Unspecified asthma with (acute) exacerbation (principal); J06.9 Acute upper respiratory infection, unspecified; E66.9 Obesity, unspecified; Z68.38 Body mass index [BMI] 38.0-38.9, adult; Z87.891 Personal history of nicotine dependence
CPT/HCPCS: 94640; 99284

== ENCOUNTER 2019-03-03 08:07 | Emergency (ER) | payer MEDICAID, SELFPAY ==
[2019-03-03 08:08] VITALS: BP 127/86; PULSE 107; RESP 20; TEMP 36.8; O2SAT 95; BMI 38.7
--- NOTE | 2019-03-03 08:17 | ED.VIS.GEN ---
History of Present Illness Chief Complaint: Shortness of Breath Informant: Patient Onset: Today Context: Gradual Onset Timing: Continuous Current Severity: Moderate Maximum Severity: Moderate Narrative: The patient presents to the emergency with cough and shortness of breath. Patient is currently staying in the [facility]. States that she is a cough. She does have a history of asthma recently ran out of her inhaler. She felt more short of breath today. She denies any fevers or chills. She denies any productive sputum. She is otherwise been in her normal state of health. On squad arrival, she was given a nebulized breathing treatment had improvement of aeration. She states she is not on steroids for greater than a month. She denies any chest pain or orthopnea. Prior similar symptoms: No Recent Illness/Hospitalization: No Past Medical History - Allergies and Home Meds Allergies/Adverse Reactions: Allergies shellfish derived Allergy (Verified 03/03/19 08:11) Shortness of breath Primary Care Physician: Care Physician,No Primary [Primary Care Provider] - Prior records reviewed: Yes Past Medical History: - - Asthma Surgical History: no surgical history Lives: With Family Smoking Status: Former smoker - Family History Maternal Family History: Reports: No pertinent history Review of Systems General: Denies: Chills, Fever, Sweats Eyes: Denies: Visual changes - bilaterally, Diplopia ENT: Denies: Rhinorrhea, Sore throat Cardiovascular: Denies: Chest pain, Palpitations Respiratory: Reports: Dyspnea, Cough. Denies: Dyspnea on exertion Gastrointestinal: Denies: Abdominal pain, Nausea, Vomiting, Diarrhea, Melena, Hematochezia Genitourinary: Denies: Dysuria, Hematuria, Frequency Musculoskeletal: Denies: Back pain, Extremity Pain Skin: Denies: Rash, Wounds Neurological: Denies: Headache, Weakness, Numbness Physical Exam Vital Signs/Narrative: Vital Signs Temp Pulse Resp BP Pulse Ox 03/03/19 08:08 98.3 F 107 H 20 H 127/86 H 95 Inital Vital Signs reviewed: Yes General: Well nourished, Well developed, No Acute Distress Head: Normocephalic, Atraumatic Eyes: Perrl, EOMI ENT: Moist mucous membranes, No rhinorrhea Neck: Supple, Nontender Cardiovascular: Regular rate, Regular rhythm, No murmurs Respiratory: No distress, Chest nontender, Wheezing, Decreased Air Movement Abdomen: Soft, Nontender, Nondistended, Normal bowel sounds Back: Nontender, Normal Inspection Extremities: Nontender, No edema Skin: Normal color, No rash Neurological: Alert, Oriented x3, Cranial nerves II-XII grossly intact, Normal Strength, Normal Sensation Psychological: Normal affect, Normal Mood Diagnostic/Tx/Re-eval - Medical Decision Making Patient presents with asthma exacerbation and is out of her inhaler. She has no hypoxia or tachypnea. The patient was treated with a DuoNeb and prednisone. She had improvement of aeration. She will be dispensed an albuterol inhaler for home. She will be continued on prednisone. She was counseled on concerning symptoms and reasons to return. She will be discharged. Impression 1. Asthma exacerbation ED Disposition - Plan for ED Patient: Instructions: ASTHMA, Acute (Adult) Prescriptions: Prednisone [Deltasone] 60 mg PO DAILY #15 tab Prescription Printed Albuterol Inhaler [Ventolin Hfa] 2 puff INHALATION Q4H PRN PRN #1 inhaler PRN Reason: Wheezing Prescription Printed Referrals: Care Physician,No Primary [Primary Care Provider] -
[2019-03-03] MEDS: Ipratropium/Albuterol Sulfate 3 ML AMPUL.NEB INHALATION (08:18)
[2019-03-03 08:21] VITALS: PULSE 104; RESP 18
[2019-03-03 08:22] VITALS: O2SAT 99
--- NOTE | 2019-03-03 08:22 | CPS ---
RT PROVIDED EDUCATION FOR HOME MDI USE. PATIENT STATED THAT SHE USES MDI AT HOME WITH SPACER.
[2019-03-03] MEDS: predniSONE 20 MG Tablet 60 MG PO (08:41)
[2019-03-03 08:54] VITALS: BP 129/89; RESP 20; O2SAT 98
== END 2019-03-03 10:12 | disposition home or self-care (01) ==
LOC: ED 08:17
PROVIDERS: Emergency Provider Emergency Medicine
DX: J45.901 Unspecified asthma with (acute) exacerbation (principal); Z87.891 Personal history of nicotine dependence
CPT/HCPCS: 94640; 99285

== ENCOUNTER 2019-04-03 03:41 | Emergency (ER) | payer MEDICAID, SELFPAY ==
[2019-04-03 03:42] VITALS: BP 141/105; PULSE 95; RESP 22; TEMP 36.7; O2SAT 94; BMI 38.7
--- NOTE | 2019-04-03 03:56 | ED.DCSUM_ITS ---
History of Present Illness Chief Complaint: Asthma Informant: Patient Narrative: Patient states that she is fairly new to the [facility]. She is currently out of her albuterol nebulizers and her albuterol inhaler. She has a long history of asthma. She states that night after somewhat to bed she developed a cough. She states she feels very tight in her chest. No fevers. She states that this is her asthma. She has a nebulizer machine and tubing and facemask. Past Medical History - Allergies and Home Meds Allergies/Adverse Reactions: Allergies shellfish derived Allergy (Verified 04/03/19 03:47) Shortness of breath Primary Care Physician: Care Physician,No Primary [Primary Care Provider] - Surgical History: no surgical history Smoking Status: Never smoker - Family History Maternal Family History: Reports: No pertinent history Review of Systems General: Denies: Chills, Fever, Sweats Eyes: Denies: Visual changes - bilaterally, Diplopia ENT: Denies: Rhinorrhea, Sore throat Cardiovascular: Denies: Chest pain, Palpitations Respiratory: Reports: Dyspnea, Cough, - - Wheezing. Denies: Dyspnea on exertion Gastrointestinal: Denies: Abdominal pain, Nausea, Vomiting, Diarrhea, Melena, Hematochezia Genitourinary: Denies: Dysuria, Hematuria, Frequency Musculoskeletal: Denies: Back pain, Extremity Pain Skin: Denies: Rash, Wounds Neurological: Denies: Headache, Weakness, Numbness Physical Exam Vital Signs/Narrative: Vital Signs Temp Pulse Resp BP Pulse Ox 04/03/19 03:42 98.0 F 95 22 H 141/105 H 94 General: Well nourished, Well developed, No Acute Distress Head: Normocephalic, Atraumatic Eyes: Perrl, EOMI ENT: Moist mucous membranes, No rhinorrhea Neck: Supple, Nontender Cardiovascular: Regular rate, Regular rhythm, No murmurs Respiratory: No distress, Chest nontender, Wheezing - inspiratory and expiratory wheezing there is no increased work of breathing Abdomen: Soft, Nontender, Nondistended, Normal bowel sounds Back: Nontender, Normal Inspection Extremities: Nontender, No edema Skin: Normal color, No rash Neurological: Alert, Oriented x3, Cranial nerves II-XII grossly intact, Normal Strength, Normal Sensation Psychological: Normal affect, Normal Mood Diagnostic/Tx/Re-eval - Medical Decision Making Patient received prednisone and breathing treatments. I will write for her to have a new inhaler as well as nebulizer solution. Will place her on burst dose of prednisone. I will encourage her to establish primary care. ED Disposition - Plan for ED Patient: Disposition: Home or Assisted Living Diagnosis: Asthma exacerbation Instructions: ASTHMA, Acute (Adult) Prescriptions: Prednisone [Deltasone] 40 mg PO DAILY #10 tab Transmission Status: Pending to [facility] Albuterol Aerosols [Ventolin Aerosols] 2.5 mg INHALATION Q4H PRN #25 vial Transmission Status: Pending to [facility] Albuterol Inhaler [Ventolin Hfa] 2 puff INHALATION Q4H PRN PRN #1 inhaler PRN Reason: Wheezing Transmission Status: Pending to [facility] Referrals: Blossom Russo MD [STAFF PHYSICIAN] - (call to establish primary care)
[2019-04-03] MEDS: Albuterol 2.5 MG/3 ML VIAL.NEB. INHALATION (04:02)
[2019-04-03] MEDS: Ipratropium/Albuterol Sulfate 3 ML AMPUL.NEB INHALATION (04:02)
[2019-04-03 04:04] VITALS: PULSE 100; RESP 16
[2019-04-03] MEDS: predniSONE 20 MG Tablet 60 MG PO (04:19)
== END 2019-04-03 04:41 | disposition home or self-care (01) ==
PROVIDERS: Emergency Provider Emergency Medicine
DX: J45.901 Unspecified asthma with (acute) exacerbation (principal)
CPT/HCPCS: 94640; 99284

== ENCOUNTER 2019-05-21 06:47 | Emergency (ER) | payer MEDICAID, SELFPAY ==
[2019-05-21 06:48] VITALS: BP 141/97; PULSE 102; RESP 18; TEMP 36.7; O2SAT 95; BMI 45.7
[2019-05-21] MEDS: Albuterol 2.5 MG/3 ML VIAL.NEB. INHALATION (07:16)
[2019-05-21] MEDS: Ipratropium/Albuterol Sulfate 3 ML AMPUL.NEB INHALATION (07:16)
--- NOTE | 2019-05-21 07:16 | ED.VIS.DYS ---
History of Present Illness Chief Complaint: Cough Informant: Patient Onset: Today - 4 hrs Activity at onset: Sleep Quality: Wheezing Current Severity: Moderate Maximum Severity: Moderate Worsened by: Exertion Relieved by: Rest Associated Symptoms: Cough - [employer]. Negative for: Fever, Sweats Chest Pain: Tightness - mild Narrative: Patient states her asthma is flared up suddenly this morning, waking her up from sleep. It is making her cough. She did not have a cough or illness when she went to bed. She suspects the weather changes are triggering this, that has been the case in the past. She does not have any albuterol at home or other medications to treat this. She is healthy other than her asthma. She denies any pleuritic chest pains. No peripheral swelling. No palpitations or lightheadedness. - Past Medical History (1) Asthma Status: Chronic Past Medical History - Allergies and Home Meds Allergies/Adverse Reactions: Allergies shellfish derived Allergy (Verified 04/03/19 03:47) Shortness of breath Primary Care Physician: Blossom Russo MD [STAFF PHYSICIAN] - As Needed (for primary care) Surgical History: no surgical history Lives: With Family Smoking Status: Former smoker - Family History Maternal Family History: Reports: No pertinent history Review of Systems General: Denies: Chills, Fever, Sweats Eyes: Denies: Visual changes - bilaterally, Diplopia ENT: Denies: Bilateral ear pain, Rhinorrhea, Sore throat Cardiovascular: Reports: Chest pain. Denies: Palpitations Respiratory: Reports: Dyspnea, Cough, Dyspnea on exertion. Denies: Sputum, Orthopnea Gastrointestinal: Denies: Abdominal pain, Nausea, Vomiting, Diarrhea, Melena, Hematochezia Genitourinary: Denies: Dysuria, Hematuria, Frequency Musculoskeletal: Denies: Back pain, Swelling, Extremity Pain Skin: Denies: Rash, Wounds Neurological: Denies: Headache, Weakness, Numbness Physical Exam Vital Signs/Narrative: Vital Signs Temp Pulse Resp BP Pulse Ox 05/21/19 06:48 98.1 F 102 H 18 141/97 H 95 Inital Vital Signs reviewed: Yes General: Well nourished, Well developed, Acute Distress - Mild respiratory Head: Normocephalic, Atraumatic Eyes: Perrl, EOMI ENT: Moist mucous membranes, No rhinorrhea, TM's clear, - - POP clear Neck: Supple, Nontender, No JVD Cardiovascular: Regular rate, Regular rhythm, No murmurs, Tachycardia - mild Respiratory: Chest nontender, Wheezing - Diffuse, throughout expiration. Prolonged expiration.. Negative for: Rales, Rhonchi Abdomen: Soft, Nontender, Nondistended, Normal bowel sounds Back: Normal Inspection, - - Painless full range of motion Extremities: Nontender, No edema Skin: Normal color, No rash Neurological: Alert, Oriented x3, Cranial nerves II-XII grossly intact, Normal Strength, Normal Sensation, Normal Gait Psychological: Normal affect, Normal Mood Diagnostic/Tx/Re-eval - Medical Decision Making Aside from wheezing lungs are clear and her pulse ox is 95% on room air. After nebulizer treatment she feels better and her wheezing is improved on reexamination. She was started on prednisone and given a 5-day burst which should help as well as a prescription for an albuterol inhaler and follow-up referral. She is comfortable with that plan. ED Disposition - Plan for ED Patient: Disposition: Home or Assisted Living Diagnosis: Acute asthma exacerbation Instructions: ASTHMA, Acute (Adult) Prescriptions: Prednisone [Deltasone] 40 mg PO DAILY #10 tab Transmission Status: Pending to [facility] Albuterol Inhaler [Ventolin Hfa] 1 - 2 puff INHALATION Q4H PRN PRN #1 inhaler PRN Reason: Wheezing Transmission Status: Pending to [facility] Referrals: Blossom Russo MD [STAFF PHYSICIAN] - As Needed (for primary care)
[2019-05-21 07:34] VITALS: PULSE 98; RESP 18
[2019-05-21] MEDS: predniSONE 20 MG Tablet 40 MG PO (07:38)
== END 2019-05-21 08:09 | disposition home or self-care (01) ==
LOC: ED 07:32
PROVIDERS: Emergency Provider Emergency Medicine
DX: J45.901 Unspecified asthma with (acute) exacerbation (principal); Z87.891 Personal history of nicotine dependence
CPT/HCPCS: 94640; 99285

== ENCOUNTER 2019-06-13 11:49 | Emergency (ER) | payer MEDICAID, SELFPAY ==
[2019-06-13 11:50] VITALS: BP 141/109; PULSE 129; RESP 22; TEMP 36.7; O2SAT 96; BMI 39.3
--- NOTE | 2019-06-13 12:00 | ED.VIS.GEN ---
History of Present Illness Chief Complaint: Asthma Informant: Patient Current Severity: Moderate Maximum Severity: Moderate Narrative: Patient has a history of asthma. She ran out of her inhaler and DuoNeb, she does not have an appointment for another 4 days. She has no fever chills cough or congestion she has no upper respiratory symptoms she has no myalgias. This is consistent with her asthma and does not feel any worse than her normal asthma exacerbations. Past Medical History - Allergies and Home Meds Allergies/Adverse Reactions: Allergies shellfish derived Allergy (Verified 04/03/19 03:47) Shortness of breath Primary Care Physician: Care Physician,No Primary [Primary Care Provider] - Past Medical History: - - Hypertension, asthma Surgical History: no surgical history Smoking Status: Former smoker - Family History Maternal Family History: Reports: No pertinent history Review of Systems All systems negative except as indicated General: Denies: Fever Eyes: Denies: Visual changes - bilaterally Cardiovascular: Denies: Chest pain Respiratory: Reports: Dyspnea, Cough. Denies: Sputum, Dyspnea on exertion Gastrointestinal: Denies: Abdominal pain, Nausea Musculoskeletal: Denies: Myalgias, Arthralgias Skin: Denies: Rash Neurological: Denies: Weakness Physical Exam Vital Signs/Narrative: Vital Signs Temp Pulse Resp BP Pulse Ox 06/13/19 11:50 98.1 F 129 H 22 H 141/109 H 96 General: Well nourished, Well developed Head: Normocephalic Eyes: Perrl ENT: Moist mucous membranes, No rhinorrhea Neck: Supple, Nontender Cardiovascular: Regular rhythm, Tachycardia Respiratory: - - She has bilateral wheezing, mild respiratory distress no retractions Abdomen: Soft Back: Nontender, Normal Inspection Extremities: Nontender, No edema Skin: Normal color Neurological: Alert Psychological: Normal affect Diagnostic/Tx/Re-eval - Medical Decision Making Patient appears well, she has an asthma exacerbation, she will be started on steroids, she will be given duo nebs she ran out of her albuterol nebulizer solution as well as her inhaler I will refill these and start her on steroids for home also. She has an appointment in a few days. She has no fever chills or any signs of serious infection. She will be discharged in stable condition ED Disposition - Plan for ED Patient: Disposition: Home or Assisted Living Diagnosis: Asthma exacerbation Instructions: ASTHMA, Acute (Adult) Prescriptions: Prednisone [Deltasone] 60 mg PO DAILY #12 tab Transmission Status: Pending to [facility] Albuterol IH (ProAir) [Proair Hfa] 1 puff INHALATION Q4H PRN PRN #1 inhaler PRN Reason: Wheezing Transmission Status: Pending to [facility] Albuterol Aerosols [Ventolin Aerosols] 2.5 mg INHALATION Q2H PRN PRN #30 vial.neb. PRN Reason: Sob &/Or Wheezing Transmission Status: Pending to [facility] Referrals: Care Physician,No Primary [Primary Care Provider] - 3-5 Days
[2019-06-13 12:10] VITALS: O2SAT 96
[2019-06-13] MEDS: predniSONE 20 MG Tablet 60 MG PO (12:18)
== END 2019-06-13 12:25 | disposition home or self-care (01) ==
LOC: ED 12:11
PROVIDERS: Emergency Provider Emergency Medicine; PCP Internal Medicine
DX: J45.901 Unspecified asthma with (acute) exacerbation (principal); I10 Essential (primary) hypertension; Z87.891 Personal history of nicotine dependence
CPT/HCPCS: 99284